=== PATIENT | female | born 1955 | race Caucasian/White ===

== ENCOUNTER 2022-03-01 15:32 | Emergency (ER) | payer SELFPAY ==
[~2022-03-01] VITALS: Ht 167.6 cm; Wt 88.2 kg
--- NOTE | 2022-03-01 15:42 | NUR ---
CALLED BY ER ADMITTING FOR PT CHECKING IN WITH STROKE LIKE SYMPTOMS- UNSTEADY GAIT, FACIAL DROOP AND SLURRED SPEECH, LAST KNOWN WELL X3 DAYS AGO. PT BROUGHT BACK TO ER BED [address] WRIGHT AT BEDSIDE EVALUATING PT. PT IS [place] [employer] SPEAKING ONLY. SON AT BEDSIDE TRANSLATING. DR WRIGHT EXPLAINED THE TESTING SHE WOULD LIKE TO DO TO R/O CVA. SON AND PATIENT REFUSED STATING THEY DIDNT WANT TO STAY. ATTEMPTED TO USE OFFICIAL VOYCE TRANSLATION TO FURTHER ASSESS, EXPLAIN TESTS NEEDED, POSSIBLE DIAGNOSIS, AND RISKS OF LEAVING AMA. PT AND SON REFUSED TO STAY AND REFUSED TO USE TRANSLATION SERVICES OFFERED. PT LEFT WITH SONS ASSISTANCE.
== END 2022-03-01 15:42 | disposition left against medical advice (07) ==
LOC: MED 15:32
DX: G51.0 Bell's palsy (principal); I10 Essential (primary) hypertension; Z79.899 Other long term (current) drug therapy
CPT/HCPCS: 99291